=== PATIENT | female | born 1995 ===

== ENCOUNTER 2017-12-29 04:18 | Emergency (ER) | payer SELFPAY ==
[2017-12-29 04:23] VITALS: BMI 20.5
--- NOTE | 2017-12-29 04:35 | ED PDOC ---
Arrival/HPI - General Chief Complaint: Female Genitourinary Time Seen by Provider: 12/29/17 04:19 Historian: Patient - History of Present Illness Narrative History of Present Illness (Text): 12/29/17 04:35 A 22 year old male with no significant past medical history presents to the emergency department complaining of white vaginal discharge since 4 days ago. Patient reports she is sexually active and has protected sex. Patient reports her LNMP was 4 days ago and she is experiencing no current pain. Patient denies any fever, chills, chest pain, shortness of breath, nausea, vomiting, diarrhea, back pain, neck pain, headache, dizziness, , or any other complaints. No PMD Time/Duration: Other (4 days) Symptom Onset: Gradual Symptom Course: Unchanged Activities at Onset: Light Context: Home Past Medical History - Provider Review Nursing Documentation Reviewed: Yes - Psychiatric Hx Substance Use: No - Anesthesia Hx Anesthesia: No Family/Social History - Physician Review Nursing Documentation Reviewed: Yes Family/Social History: Unknown Family HX Smoking Status: Never Smoked Hx Alcohol Use: No Hx Substance Use: No Allergies/Home Meds Allergies/Adverse Reactions: Allergies No Known Allergies Allergy (Verified 12/29/17 04:23) Review of Systems - Physician Review All systems were reviewed & negative as marked: Yes - Review of Systems Constitutional: absent: Fevers, Night Sweats Respiratory: absent: SOB Cardiovascular: absent: Chest Pain Gastrointestinal: absent: Diarrhea, Nausea, Vomiting Genitourinary Female: Vaginal Discharge (white vaginal discharge). absent: Dysuria, Frequency, Hematuria, Urine Output Changes, Vaginal Bleeding, Other ( ) Musculoskeletal: absent: Back Pain, Neck Pain Neurological: absent: Headache, Dizziness Physical Exam Vital Signs Temp Pulse Resp BP Pulse Ox 12/29/17 04:45 99.0 F 60 18 120/84 100 - Systems Exam Head: Present: Atraumatic, Normocephalic Pupils: Present: PERRL Extroacular Muscles: Present: EOMI Conjunctiva: Present: Normal Mouth: Present: Moist Mucous Membranes Neck: Present: Normal Range of Motion Respiratory/Chest: Present: Clear to Auscultation, Good Air Exchange. No: Respiratory Distress, Accessory Muscle Use Cardiovascular: Present: Regular Rate and Rhythm, Normal S1, S2. No: Murmurs Abdomen: No: Tenderness, Distention, Peritoneal Signs Back: Present: Normal Inspection Upper Extremity: Present: Normal Inspection. No: Cyanosis, Edema Lower Extremity: Present: Normal Inspection. No: Edema Neurological: Present: GCS=15, CN II-XII Intact, Speech Normal Skin: Present: Warm, Dry, Normal Color. No: Rashes Psychiatric: Present: Alert, Oriented x 3, Normal Insight, Normal Concentration Medical Decision Making ED Course and Treatment: std vs vaginitis vs uti 12/29/17 04:40 Impression: 22 year old female with no significant past medical history presents to the emergency department complaining of white vaginal discharge. Plan: -- Chlamydia Lab -- HCG, Qualitative Urine Stat -- Urinalysis -- Reassess and disposition Prior Visits: Notes and results from previous visits were reviewed. Progress Notes: 12/29/17 04:40 Patient refuses to be treated for STD without results of testing. 12/29/17 05:30 upon dc, pt request fx for flagyl. states h/o of bv, and "her symtpoms feel similar". - Lab Interpretations Lab Results: Lab Results 12/29/17 04:30: Urine Color Yellow, Urine Appearance Clear, Urine pH 6.0, Ur Specific [place] >= 1.030, Urine Protein Negative, Urine Glucose (UA) Negative, Urine Ketones Negative, Urine Blood Negative, Urine Nitrate Negative, Urine Bilirubin Negative, Urine Urobilinogen 0.2, Ur Leukocyte Esterase Negative, Urine HCG, Qual Negative - Scribe Statement The provider has reviewed the documentation as recorded by the Olaf Carlos All medical record entries made by the Olaf were at my direction and personally dictated by me. I have reviewed the chart and agree that the record accurately reflects my personal performance of the history, physical exam, medical decision making, and the department course for this patient. I have also personally directed, reviewed, and agree with the discharge instructions and disposition. Disposition/Present on Arrival - Present on Arrival Any Indicators Present on Arrival: No History of DVT/PE: No History of Uncontrolled Diabetes: No Urinary Catheter: No History of Decub. Ulcer: No History Surgical Site Infection Following: None - Disposition Have Diagnosis and Disposition been Completed?: Yes Diagnosis: Screen for STD (sexually transmitted disease), Vaginal discharge Disposition: HOME/ ROUTINE Disposition Time: 04:00 Patient Problems: Current Active Problems Problem Status Onset Screen for STD (sexually transmitted disease) Acute Condition: STABLE Discharge Instructions (ExitCare): Vulvovaginal Yeast Infection, Bacterial Vaginosis, Screening for Sexually Transmitted Infections Additional Instructions: please follow up with your doctor. return to er with worsening symptoms or concerns. you will recieve a call if the lab test is positive. Prescriptions: Metronidazole 500 mg PO BID #14 tablet Referrals: [facility] [Outside] - Follow up with primary [facility] [Outside] - Follow up with primary [facility] [Outside] - Follow up with primary Leo Molina DO [Staff Provider] - Follow up with primary Forms: [employer] ([place]ian)
[2017-12-29 04:46] VITALS: RESP 18; TEMP 99; O2SAT 100
[2017-12-29 04:54] LABS: URINE BILIRUBIN NEGATIVE (NEGATIVE); URINE BLOOD NEGATIVE (NEGATIVE); URINE GLUCOSE (UA) NEGATIVE (NEGATIVE); URINE LEUKOCYTE ESTERASE NEGATIVE Leu/uL (NEGATIVE); URINE PROTEIN NEGATIVE mg/dL (<30 mg/dL); URINE UROBILINOGEN 0.2 E.U./dL (<1 E.U./dL)
[2017-12-29 04:59] LABS: URINE APPEARANCE CLEAR (CLEAR); URINE COLOR YELLOW (YELLOW)
[2017-12-29 05:03] LABS: HCG,QUALITATIVE URINE NEGATIVE (NEGATIVE)
[2017-12-29 05:32] VITALS: BP 119/82; PULSE 65
== END 2017-12-29 05:10 | disposition home or self-care (01) ==
LOC: ED 04:18
DX: Z11.3 Encounter for screening for infections with a predominantly sexual mode of transmission (principal); N89.8 Other specified noninflammatory disorders of vagina

== ENCOUNTER 2018-08-16 14:39 | Emergency (ER) | payer MEDICAID, OTHER ==
[2018-08-16 14:39] VITALS: BMI 20.5
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
[2018-08-16 15:20] VITALS: PULSE 60; RESP 16
--- NOTE | 2018-08-16 16:54 | RAD ---
Date of service: 08/16/2018 PROCEDURE: Right ring finger radiographs. HISTORY: s/p injury 1 week ago - diagnosed with fx COMPARISON: None. TECHNIQUE: AP radiograph of the right hand, as well as spot oblique and lateral images of ring finger were obtained. FINDINGS: RIGHT RING FINGER: Distal tuft fracture. Remainder of the right hand (as seen on the AP view) grossly unremarkable. JOINTS: Normal. SOFT TISSUES: Soft tissue swelling attests to the acuity of the fracture. No visualized radiopaque foreign body. OTHER FINDINGS: None. IMPRESSION: Acute fracture distal tuft 4th digit.
[2018-08-16] MEDS ORDERED: cefTRIAXone (Rocephin) 250 mg Inj IM STA (16:56)
[2018-08-16 18:09] VITALS: BP 118/72; TEMP 97.6; O2SAT 98
== END 2018-08-16 18:07 | disposition home or self-care (01) ==
LOC: ED 14:39
DX: Z20.2 Contact with and (suspected) exposure to infections with a predominantly sexual mode of transmission (principal); S62.634A Displaced fracture of distal phalanx of right ring finger, initial encounter for closed fracture; X58.XXXA Exposure to other specified factors, initial encounter
CPT/HCPCS: 73140; 87491; 87591; 96372; 99284; J0696